=== PATIENT | female | born 1930 | race Two or more races ===

== ENCOUNTER 2016-11-07 17:16 | Inpatient (IN) | payer MEDICARE, OTHER ==
[~2016-11-07] VITALS: Ht 147.3 cm; Wt 53.5 kg
[2016-11-07] MEDS ORDERED: Milk of Magnesia 30ml Ud ORAL PRN (18:15)
[2016-11-07] MEDS ORDERED: UNOBMED (19:56)
[2016-11-07 20:00] VITALS: BP 152/72
[2016-11-07] MEDS: Metoprolol Tartrate 50mg tab ORAL SCH (20:55)
[2016-11-07] MEDS: Donepezil 5mg Tab ORAL SCH (20:55)
[2016-11-07] MEDS ORDERED: ceFAZolin 1gm/50ml Premix 50 ML IV SCH (21:00)
[2016-11-07] MEDS: Hydrocortisone 2.5% Oint 30gm TOPIC SCH (21:20)
[2016-11-08] VITALS: BP 134/70
[2016-11-08 04:00] VITALS: BP 140/83
[2016-11-08 07:31] LABS: CREATININE 0.9 mg/dL (0.5-0.9)
[2016-11-08 08:00] VITALS: BP 142/83
[2016-11-08] MEDS: Metoprolol Tartrate 50mg tab ORAL SCH ×2 (08:46→20:48)
[2016-11-08] MEDS: Vitamin D 1000 IU Tab ORAL SCH (08:46)
[2016-11-08] MEDS: Sennosides 8.6mg ORAL PRN (08:46)
[2016-11-08] MEDS: Aspirin Baby 81mg ORAL SCH (08:46)
[2016-11-08] MEDS: Hydrocortisone 2.5% Oint 30gm TOPIC SCH ×2 (08:51→20:50)
[2016-11-08 12:00] VITALS: BP 15/76
[2016-11-08] MEDS: ceFAZolin sod 1 GM in D5W 55 ML IVP SCH ×2 (12:17→20:30)
[2016-11-08] MEDS ORDERED: NS 275ml ONE (15:35)
[2016-11-08 16:15] VITALS: BP 126/76
[2016-11-08 20:00] VITALS: BP 162/93
[2016-11-08] MEDS: Donepezil 5mg Tab ORAL SCH (20:31)
[2016-11-09] VITALS: BP 143/76
--- NOTE | 2016-11-09 02:15 | History and Physical Report ---
DATE OF ADMISSION: 11/07/2016 CHIEF COMPLAINT: Lower extremity cellulitis and edema. History Of Present Illness: The patient is a pleasant female with a history of hypertensive heart disease, mild dementia, and 00:25 disease. She presented from a staff assistant's office with complaints of lower extremity edema and erythema and pain in the legs. The patient was diagnosed with cellulitis as well as mild CHF exacerbation and is now admitted for further evaluation and care. PAST MEDICAL HISTORY: As above. PAST SURGICAL HISTORY: None. CURRENT MEDICATIONS: Reconciled and reviewed. ALLERGIES: None. FAMILY HISTORY: None. SOCIAL HISTORY: Negative for tobacco, ethanol, or drugs. Review Of Systems: General: No fever or chills. HEENT: No headaches or visual changes. Cardiopulmonary: No chest pain. Positive lower extremity edema. Gastrointestinal: No nausea or vomiting. Genitourinary: No urgency or frequency. Musculoskeletal: Positive lower extremity edema. Neurologic: No evidence of seizures. PHYSICAL EXAMINATION: Vital Signs: Temperature 98 degrees, pulse 57, and blood pressure 140/83. The patient is a well-developed female, in no apparent distress. GENERAL: She is awake and alert. NECK: Supple. No jugular vein distention. HEART: Regular rate and rhythm. LUNGS: Clear. ABDOMEN: Soft, nontender, and nondistended. Extremities: Without clubbing or cyanosis. Legs have 2+ edema. There are multiple excoriations. There is some erythema noted from the knees down. LABORATORY DATA: Labs are pending. ASSESSMENT: 1. This is a pleasant female admitted with complaints of possible lower extremity cellulitis . 2. Possible congestive heart failure exacerbation. 3. Venous insufficiency. 4. Hypertension. PLAN: 1. IV antibiotics. 2. Cardiology consultation for management of the patient's heart failure regimen. 3. DVT and stress ulcer prophylaxes. 4. Keep legs elevated. Reji Ochoa M.D. DR: VAZQUEZ JOB#: [id number] CC:
[2016-11-09 04:00] VITALS: BP 136/85
--- NOTE | 2016-11-09 05:30 | History and Physical Report ---
CARDIOLOGY CONSULTATION 11/07/2016 REFERRING MD: KATELYNN KENNEDY M.D. Reason For CONSULT: Cellulitis of bilateral lower extremities, edema, and possible congestive heart failure. History Of Present Illness: This is an 85-year-old female. She lives at home. She was seen in my office today complaining of worsening rash, itching, and swelling of her lower extremities. There is some involvement of her upper extremities with regards to the rash, but not a significant. The patient has been using her usual creams for psoriasis, but has deteriorated with regard to the symptoms noted above. She has not had shortness of breath or chest pain. Past Medical History: Hypertension, history of diastolic congestive heart failure, osteoporosis, osteoarthritis, degenerative disk disease, permanent pacemaker, conduction system disease, sinus node disease, psoriasis, and vitamin D deficiency. ALLERGIES: None. MEDICATIONS: Prior to admission, reviewed and reconciled. SOCIAL HISTORY: Nonsmoker. No alcohol or substance abuse. FAMILY HISTORY: Noncontributory. Review Of Systems: No fevers or chills. No history of DVT. No seizure or stroke. No change in bowel habits, although she has chronic constipation. No history of kidney disease. No history of flow-limiting coronary disease or exertional chest pain. No history of asthma. Her most recent echocardiogram revealed normal ejection fraction, concentric hypertrophy, and mild degenerative valve disease. She had a permanent pacemaker that was recently interrogated and functioning appropriately. There is no history of diabetes or thyroid impairment. She has had a history of elevated cholesterol, but is not on therapy at this time. OBJECTIVE: Vital signs: Blood pressure 152/72, pulse 61, respirations 18, and afebrile. HEENT: Arcus senilis. Oropharynx clear. NECK: Supple. LUNGS: Clear. Cardiac: Regular. Normal S1 and S2 with a 1/6 early systolic apical murmur. Pacemaker pocket site clean and dry. BREASTS: Without discrete masses. ABDOMEN: Soft and nontender. No ascites. EXTREMITIES: A 1+ dependent edema mostly nonpitting and diffuse. Skin: Erythematous patches with erythema and some scabbing to the lower extremities predominantly. IMPRESSION: 1. Cellulitis. 2. Venous insufficiency with edema. 3. No clinical signs of acute congestive heart failure. 4. Hypertensive heart disease. 5. Permanent pacemaker. 6. History of psoriasis. PLAN: 1. Antimicrobials. 2. Continue topical steroids. 3. Considering Dermatology and Rheumatology evaluation. 4. DVT prophylaxis. 5. Venous duplex scan to assess for DVT. Hernandez Blount M.D. DR: SHARAN JOB#: [id number] CC: SOBEIDA
--- NOTE | 2016-11-09 05:45 | Progress Note ---
DATE: 11/08/2016 INTERNAL MEDICINE CARDIOLOGY PROGRESS NOTE Subjective: The patient has no chest pain or shortness of breath. Her leg swelling is about the same. Her itching is decreased. Her rash still is present. OBJECTIVE: Vital Signs: Blood pressure 142/83, pulse 60, respirations 16, and afebrile. LUNGS: Clear. CARDIAC: Regular. No new murmur. ABDOMEN: Soft. EXTREMITIES: Nonpitting edema. Skin: With lower extremity erythematous patches with some scaling and thickened skin. IMPRESSION: 1. Psoriasis with secondary cellulitis. 2. Venous insufficiency with chronic edema. 3. No signs of acute congestive heart failure. 4. Hypertensive heart disease. 5. Permanent pacemaker. PLAN: 1. Empiric antibiotics. 2. Topical steroids. 3. Await venous duplex scan. 4. Continue current antihypertensives. 5. DVT prophylaxis. Hernandez Blount M.D. DR: Sharlene JOB#: [id number] CC:
[2016-11-09 08:03] VITALS: BP 152/71
[2016-11-09] MEDS: Hydrocortisone 2.5% Oint 30gm TOPIC SCH (08:24)
[2016-11-09] MEDS: Metoprolol Tartrate 50mg tab ORAL SCH (08:24)
[2016-11-09] MEDS: Sennosides 8.6mg ORAL PRN (08:24)
[2016-11-09] MEDS: Vitamin D 1000 IU Tab ORAL SCH (08:25)
[2016-11-09] MEDS: Aspirin Baby 81mg ORAL SCH (08:26)
[2016-11-09 08:52] LABS: BASOPHILS % (AUTO) 1.6 % (0.0-2.0); EOSINOPHILS % (AUTO) 3.8 % (0.0-3.0); LYMPHOCYTES % (AUTO) 47.9 % (20.0-45.0); MEAN CORPUSCULAR HEMOGLOBIN 32.9 PG (27.0-31.0); MEAN CORPUSCULAR HGB CONC 31.6 G/DL (32.0-36.0); MEAN CORPUSCULAR VOLUME 104 FL (80-99); MEAN PLATELET VOLUME 8.1 FL (6.5-10.1); MONOCYTES % (AUTO) 7.8 % (1.0-10.0); NEUTROPHILS % (AUTO) 38.8 % (45.0-75.0); PLATELET COUNT 181 K/UL (150-450); RED BLOOD COUNT 4.01 M/UL (4.20-5.40); RED CELL DISTRIBUTION WIDTH 12.3 % (11.6-14.8); WHITE BLOOD COUNT 3.9 K/UL (4.8-10.8)
[2016-11-09 09:05] LABS: ALANINE AMINOTRANSFERASE 14 U/L (3-33); ALBUMIN/GLOBULIN RATIO 1.5 (1.0-2.7); ANION GAP 10 (5-15); ASPARTATE AMINO TRANSFERASE 25 U/L (5-40); CALCIUM 10.1 mg/dL (8.6-10.2); CARBON DIOXIDE 31 mEQ/L (20-30); CHLORIDE 102 mEQ/L (98-107); HEMOLYSIS 4; MAGNESIUM 1.9 mg/dL (1.7-2.5); POTASSIUM 4.5 mEQ/L (3.4-4.9); SODIUM 143 mEQ/L (135-145); TOTAL PROTEIN 6.8 g/dL (6.6-8.7)
[2016-11-09] MEDS: ceFAZolin sod 1 GM in D5W 55 ML IVP SCH (10:00)
[2016-11-09 12:03] VITALS: BP 127/75
[2016-11-09] MEDS ORDERED: Heparin 5000 units/ml inj SUBQ SCH (21:00)
--- NOTE | 2016-11-10 05:32 | Progress Note ---
DATE: 11/09/2016 CARDIOLOGY PROGRESS NOTE Subjective: The patient has no chest pain and no shortness of breath. She is anxious to go home. She says she feels much better. Her leg swelling has decreased. Her itching has stopped. OBJECTIVE: Vital signs: Blood pressure is 127/75, pulse 60, respirations 21, and afebrile. NECK: Supple. LUNGS: Clear. Cardiac: Regular. Normal S1 and S2 with no third heart sound. There is a soft 1/6 apical murmur. ABDOMEN: Soft. Extremities: Revealed no pitting edema and erythematous patches have decreased significantly with no signs of active infection. IMPRESSION: 1. Hypertensive heart disease with blood pressure being labile at times with overall adequate control on current regimen. 2. Diastolic dysfunction with no signs of acute congestive heart failure presently. 3. Chronic venous insufficiency with lower extremity edema, stable. 4. Cellulitis, improved of lower extremities. 5. Psoriasis, chronic. 6. Permanent pacemaker with stable function. PLAN: 1. Outpatient followup. 2. Oral therapy discussed with the patient. 3. Cardiac followup for routine pacemaker interrogation. Hernandez Blount M.D. DR: Gregor JOB#: [id number] CC:
--- NOTE | 2016-11-10 18:00 | Discharge Summary ---
DATE OF ADMISSION: 11/07/2016 DATE OF DISCHARGE: 11/09/2016 ADMISSION DIAGNOSES: 1. Cellulitis. 2. Possible congestive heart failure exacerbation. 3. History of hypertension. DISCHARGE DIAGNOSES: 1. Cellulitis. 2. Possible congestive heart failure exacerbation. 3. History of hypertension. 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 She was noted to have worsening lower extremity edema with cellulitis. She was admitted. She received intravenous antibiotics, diuretic therapy, and cellulitis improved after just several days. She was stable for discharge. The patient was discharged home in stable condition. Discharge Medications: Please see discharge medication list for discharge medications. DIET: Regular cardiac diet. ACTIVITY: Ad-ga. Followup: The patient will be followed up in one to two weeks in the office. Reji Ochoa M.D. DR: Ena JOB#: [id number] CC:
--- NOTE | 2016-11-11 12:56 | Diagnostic Imaging Report ---
APPROVED REPORT CPT Code: 63008 Present Symptoms Comments: R/O DVT BILATERAL: Imaging reveals a patent deep venous system bilaterally. There is no evidence of thrombus within the femoral, popliteal or tibial segments. The greater saphenous veins are also within normal limits. Doppler indicates normal spontaneous flow within these segments.
== END 2016-11-09 15:16 | disposition home or self-care (01) | DRG 603 ==
LOC: 4E 17:32
DX: L03.116 Cellulitis of left lower limb (principal); I11.0 Hypertensive heart disease with heart failure; I50.32 Chronic diastolic (congestive) heart failure; L03.115 Cellulitis of right lower limb; I87.2 Venous insufficiency (chronic) (peripheral); L40.9 Psoriasis, unspecified; Z95.0 Presence of cardiac pacemaker; M81.0 Age-related osteoporosis without current pathological fracture
CPT/HCPCS: 36415; 80053; 82565; 83735; 83880; 85025; 93970

== ENCOUNTER 2017-12-19 12:48 | Emergency (ER) | payer MEDICARE, OTHER ==
[~2017-12-19] VITALS: Ht 157.5 cm; Wt 54.4 kg
[~2017-12-19 12:48] MED LIST: UNOBMED
[2017-12-19 12:55] VITALS: BP 180/85
[2017-12-19 13:55] VITALS: BP 180/95
[2017-12-19 14:00] LABS: BASOPHILS % (AUTO) 1.3 % (0.0-2.0); EOSINOPHILS % (AUTO) 3.4 % (0.0-3.0); HEMATOCRIT 36.6 % (37.0-47.0); HEMOGLOBIN 11.6 G/DL (12.0-16.0); LYMPHOCYTES % (AUTO) 30.9 % (20.0-45.0); MEAN CORPUSCULAR VOLUME 96 FL (80-99); NEUTROPHILS % (AUTO) 55.4 % (45.0-75.0); PLATELET COUNT 129 K/UL (150-450); RED CELL DISTRIBUTION WIDTH 12.2 % (11.6-14.8); WHITE BLOOD COUNT 4.5 K/UL (4.8-10.8)
--- NOTE | 2017-12-19 14:08 | Emergency Room Report ---
History of Present Illness General Chief Complaint: Abdominal Pain Source: Patient Present Illness HPI 87yo F with a h/o HTN and dementia presents with intermittent vague Abdominal pain, for 2 weeks, no obvious alleviating or exacerbating factors, is not currently having the pain, denies diarrhea or constipation, nausea vomiting, chest pain shortness breath, fevers, urinary complaints. Allergies: Coded Allergies: No Known Allergies (Verified , 04/25/09) Patient History Past Medical History: see triage record Reviewed Nursing Documentation: PMH: Agreed; PSxH: Agreed Nursing Documentation-PMH Past Medical History: No History, Except For Hx Cardiac Problems: Yes Hx Hypertension: Yes Hx Pacemaker: Yes Hx Neurological Problems: Yes Hx Dementia: Yes Review of Systems All Other Systems: negative except mentioned in HPI Physical Exam Vital Signs Date Time Temp Pulse Resp B/P (MAP) Pulse Ox O2 Delivery O2 Flow Rate FiO2 12/19/17 12:53 97.5 74 14 163/117 96 Room Air Sp02 EP Interpretation: reviewed, normal General Appearance: no apparent distress, alert, non-toxic Head: normocephalic Eyes: bilateral eye normal inspection, bilateral eye PERRL, bilateral eye EOMI ENT: normal ENT inspection, hearing grossly normal, normal pharynx, no angioedema, normal voice, moist mucus membranes Neck: normal inspection, full range of motion, supple, supple/symm/no masses Respiratory: chest non-tender, lungs clear, normal breath sounds, chest symmetrical, palpation of chest normal Cardiovascular #1: normal peripheral pulses, regular rate, rhythm, other - Left chest pacemaker site clean dry and intact Cardiovascular #2: 2+ radial (R), 2+ radial (L), 2+ dorsalis pedis (R), 2+ dorsalis pedis (L) Gastrointestinal: normal inspection, non tender, soft, no mass, no guarding, no rebound Rectal: deferred Genitourinary: normal inspection, no CVA tenderness Musculoskeletal: back normal, gait/station normal, normal range of motion, non- tender, no calf tenderness Neurologic: alert, responsive, manipulative therapy specialist III-XII nml as tested, motor strength/tone normal, sensory intact, speech normal Psychiatric: judgement/insight normal, memory normal, mood/affect normal Skin: normal color, no rash, warm/dry, normal turgor Lymphatic: no adenopathy Medical Decision Making Diagnostic Impression: Primary Impression: Abdominal pain ER Course Patient with a soft, nontender abdomen, and actually with no current abdominal pain despite getting no meds here. Pulse exam normal also. Labs and UA without any concerning findings. Pending CT abd/pelvis. CT/MRI/US Diagnostic Results CT/MRI/US Diagnostic Results : Imaging Test Ordered: ct abd/pelvis Last Vital Signs Date Time Temp Pulse Resp B/P (MAP) Pulse Ox O2 Delivery O2 Flow Rate FiO2 12/19/17 12:55 96.8 60 16 180/85 100 Room Air Disposition: HOME, SELF-CARE Condition: Stable Signed Out To: TORY Henrandez M.D Dec 19, 2017 14:07
[2017-12-19] MEDS ORDERED: Sodium Chloride 500ML 500 ML IV ONE (14:10)
[2017-12-19 14:22] LABS: APPEARANCE,URINE CLEAR; BILIRUBIN, URINE NEGATIVE (NEGATIVE); COLOR,URINE PALE YELLOW; GLUCOSE, URINE (UA) NEGATIVE (NEGATIVE); KETONES,URINE NEGATIVE (NEGATIVE); LEUKOCYTE ESTERASE ,URINE NEGATIVE (NEGATIVE); NITRITE,URINE NEGATIVE (NEGATIVE); PH,URINE 8 (4.5-8.0); PROTEIN,URINE NEGATIVE (NEGATIVE); UROBILINOGEN,URINE NORMAL MG/DL (0.0-1.0)
[2017-12-19 14:25] LABS: ANION GAP 6 mmol/L (5-15); BLOOD UREA NITROGEN 20 mg/dL (7-18); CALCIUM 9.2 MG/DL (8.5-10.1); CARBON DIOXIDE 31 MMOL/L (21-32); CHLORIDE 107 MMOL/L (98-107); POTASSIUM 3.9 MMOL/L (3.5-5.1); SODIUM 144 MMOL/L (136-145)
[2017-12-19 14:34] LABS: ALANINE AMINOTRANSFERASE 21 U/L (12-78); ALBUMIN 3.3 G/DL (3.4-5.0); ALBUMIN/GLOBULIN RATIO 0.9 (1.0-2.7); ALKALINE PHOSPHATASE 55 U/L (46-116); ASPARTATE AMINO TRANSFERASE 22 U/L (15-37); BILIRUBIN,TOTAL 0.6 MG/DL (0.2-1.0)
[2017-12-19] MEDS ORDERED: DICYCLOMIN10 MG/5 M1 PO (14:40)
[2017-12-19 14:55] VITALS: BP 181/84
[2017-12-19 15:36] VITALS: BP_SYST 173; BP_SYST 181; BP_DIAS 104; BP_DIAS 84
--- NOTE | 2017-12-19 15:37 | Diagnostic Imaging Report ---
Indication: Abdominal pain Technique: Continuous helical transaxial imaging of the abdomen and pelvis was obtained from the lung bases to the pubic symphysis. No intravenous contrast was administered. Coronal 2-D reformats were also obtained. Automatic Exposure Control was utilized. Total Dose length Product (DLP): 441.[address] Dose Index Volume (CTDIvol): 10.28 mGy Comparison: none Findings: Lung bases show minimal reticulation likely a small focus of atelectasis or scarring at both lung bases. Small hypodensity noted within the left lobe of the liver nonspecific but probably a cyst. Pacemaker is noted. There is a hypodensity 2.7 cm in the right kidney probably cystic. The gallbladder is grossly unremarkable. Some calcification at the origin of the renal arteries and within the wall of the aorta and iliac arteries noted. Evaluation of solid organs is limited on this study done without IV contrast material. No free fluid or free air identified. The bladder is distended. Uterus is either atrophic or has been removed. The appendix is probably seen and as such appears unremarkable. There is narrowing of intervertebral discs and accompanying endplate osteophyte formation. Hypertrophied facet joints also demonstrated.. IMPRESSION: No acute findings appreciated. Mild basilar fibrosis versus atelectasis. Pacemaker Renal hypodensity in the right and left lobe liver hypodensity nonspecific. These may be cysts. Atherosclerotic disease. Other incidental findings as above The CT scanner at [facility] is accredited by the [employer] and the scans are performed using dose optimization techniques as appropriate to a performed exam including Automatic Exposure control.
[2017-12-19 16:10] VITALS: BP 167/71
[2017-12-19] MEDS ORDERED: HYDROCORTISONE28 G2 TP (18:34)
[2017-12-19 18:40] VITALS: BP 132/75
== END 2017-12-19 18:46 | disposition home or self-care (01) ==
LOC: EDBD 12:48 → EMR 13:58 → EDBEDREQ 15:56 → EMR 18:46
DX: R10.9 Unspecified abdominal pain (principal); I10 Essential (primary) hypertension; Z95.0 Presence of cardiac pacemaker; F03.90 Unspecified dementia, unspecified severity, without behavioral disturbance, psychotic disturbance, mood disturbance, and anxiety
CPT/HCPCS: 36415; 74176; 80053; 81003; 83690; 84484; 85025; 96374; 99284; J0360

== ENCOUNTER 2018-03-18 15:49 | Inpatient (IN) | payer MEDICARE, OTHER ==
[~2018-03-18] VITALS: Ht 162.6 cm; Wt 46.8 kg
[~2018-03-18 15:49] MED LIST changes: +DICYCLOMIN10 MG/5 M1 PO; +HYDROCORTISONE28 G2 TP
[2018-03-18] MEDS ORDERED: Milk of Magnesia 30ml Ud ORAL PRN (18:30)
--- NOTE | 2018-03-18 19:16 | NUR ---
HAND-OFF: Report given to Kavitha MALONE.
--- NOTE | 2018-03-18 19:45 | NUR ---
NURSE NOTES: Received patient in bed asleep easily arousable to name, no s/s distress noted. Noted bilateral lower extremity with redness, rashes, and swelling. C/o mild pain at this time. Safety precaution maintained. Instructed to use call light for assistance.
[2018-03-18 20:00] VITALS: BP 146/63
[2018-03-18] MEDS ORDERED: Vancomycin 1gm/D5W 275ml IVPB ONE ×2 (20:00)
--- NOTE | 2018-03-18 20:15 | History and Physical Report ---
DATE OF ADMISSION: 03/18/2018 REASON FOR ADMISSION: Right lower extremity cellulitis, weakness, and dehydration. HISTORY OF PRESENT ILLNESS: This is an 87-year-old female. She lives alone, but has a caregiver frequently assisting. She was seen in my office with worsening lower extremity rash. She also noted weakness, dizziness, and general decline in her ability for self-care. A rash on her leg has worsened. She does have a history of psoriasis, but the usual treatment has not been working and she has stated that her foot care has been quite poor. She states "I am not able to take care of things anymore." The patient had been treated with oral antibiotics several times, but failed to improve. Hospitalization is now initiated. PAST MEDICAL HISTORY: 1. Hypertension. 2. Diastolic dysfunction. 3. Osteoarthritis. 4. Degenerative disk disease. 5. Osteoporosis. 6. Sinus node disease with permanent pacemaker. 7. Vitamin D deficiency. MEDICATIONS: Reviewed and reconciled. ALLERGIES: None. FAMILY HISTORY: Noncontributory. SOCIAL HISTORY: Negative for smoking, alcohol, or substance abuse. REVIEW OF SYSTEMS: She is hard of hearing. She has poor vision. She was seen by an trimmer machine last year and felt not have any reversible ophthalmologic issues. She has no history of asthma. There is no history of blood clotting in the legs. She has a permanent pacemaker interrogated in the last six months and adequately functioning. An echocardiogram in the past has revealed normal ejection fraction and mild degenerative valve disease. There is no history of flow-limiting coronary disease. She occasionally has dysuria and frequency. There is no history of kidney disease. She has chronic constipation with no recent change in bowel habits. She had a colonoscopy about 10 years ago. There is no history of diabetes or thyroid dysfunction. She has been on anti-lipid therapy in the past. She is on vitamin D supplementation. She does have mild dementia, but is able to make decisions about her health care. There is no history of seizure or stroke. PHYSICAL EXAMINATION: VITAL SIGNS: Blood pressure 140/70, pulse 70, respirations 18, and afebrile. HEENT: Arcus senilis. Oropharynx clear. NECK: Supple. LUNGS: Clear. BREASTS: Without masses. Mild tinea. CARDIAC: Regular rhythm and rate. Normal S1, S2 with no murmur. Chest wall with pacemaker pocket clean and dry. ABDOMEN: Soft and nontender. EXTREMITIES: With 1+ dependent edema. Erythema in bilateral lower extremities. Onychomycosis. Some ulcerated sites on the feet and there is a bruise over the left cheek. NEUROLOGIC: Reveals symmetric weakness. Poor sensation. IMPRESSION: 1. Bilateral lower extremity cellulitis. 2. History of psoriasis without definitive diagnosis. 3. Functional decline. 4. Unsteady gait. 5. Bruise, left cheek, possibly due to contusion . 6. Permanent pacemaker. 7. Hypertensive heart disease. 8. Chronic venous insufficiency. 9. Hypovolemia. 10. Dehydration. 11. Poor vision. 12. Onychomycosis. PLAN: 1. Skin care. 2. Skin biopsy. 3. Intravenous antimicrobials. 4. Podiatry evaluation. 5. Physical and occupational therapy. 6. Hydration. 7. Metabolic profile. 8. Further recommendations to follow. Hernandez Blount M.D. DR: GRIFFIN JOB#: [id number] CC:
[2018-03-18] MEDS: Metoprolol Tartrate 50mg tab ORAL SCH (20:16)
[2018-03-18] MEDS: Fluocinonide 15gm Cream TOPIC SCH (20:16)
[2018-03-18 21:23] LABS: BASOPHILS % (AUTO) 1.4 % (0.0-2.0); EOSINOPHILS % (AUTO) 3.4 % (0.0-3.0); HEMATOCRIT 33.9 % (37.0-47.0); HEMOGLOBIN 10.8 G/DL (12.0-16.0); LYMPHOCYTES % (AUTO) 43.4 % (20.0-45.0); MEAN CORPUSCULAR VOLUME 101 FL (80-99); MONOCYTES % (AUTO) 6.9 % (1.0-10.0); NEUTROPHILS % (AUTO) 44.9 % (45.0-75.0); PLATELET COUNT 137 K/UL (150-450); RED BLOOD COUNT 3.35 M/UL (4.20-5.40); RED CELL DISTRIBUTION WIDTH 13.4 % (11.6-14.8)
[2018-03-18 21:48] LABS: ALANINE AMINOTRANSFERASE 19 U/L (12-78); ALBUMIN 3.1 G/DL (3.4-5.0); ALBUMIN/GLOBULIN RATIO 0.9 (1.0-2.7); ALKALINE PHOSPHATASE 68 U/L (46-116); ANION GAP 2 mmol/L (5-15); ASPARTATE AMINO TRANSFERASE 20 U/L (15-37); BILIRUBIN,TOTAL 0.3 MG/DL (0.2-1.0); BLOOD UREA NITROGEN 19 mg/dL (7-18); CALCIUM 9.2 MG/DL (8.5-10.1); CARBON DIOXIDE 33 MMOL/L (21-32); CHLORIDE 107 MMOL/L (98-107); SODIUM 142 MMOL/L (136-145)
[2018-03-18] MEDS: Heparin 5000 units/ml inj SUBQ SCH (21:53)
[2018-03-19] VITALS: BP 155/78
[2018-03-19 02:36] LABS: APPEARANCE,URINE CLEAR; BILIRUBIN, URINE NEGATIVE (NEGATIVE); COLOR,URINE PALE YELLOW; GLUCOSE, URINE (UA) NEGATIVE (NEGATIVE); KETONES,URINE NEGATIVE (NEGATIVE); LEUKOCYTE ESTERASE ,URINE 1+ (NEGATIVE); NITRITE,URINE NEGATIVE (NEGATIVE); PH,URINE 7 (4.5-8.0); PROTEIN,URINE NEGATIVE (NEGATIVE); UROBILINOGEN,URINE NORMAL MG/DL (0.0-1.0)
[2018-03-19 04:00] VITALS: BP 126/77
--- NOTE | 2018-03-19 07:11 | NUR ---
HAND-OFF: Report given to Brenda MALONE.
--- NOTE | 2018-03-19 07:48 | NUR ---
nurse notes received patient resting comfortably in bed, eating breakfast, patient awake, alert, oriented x3 with period of forgetfullness noted, IVF infusing well on left AC, Denies pain or discomfort, on fall precaution observed and maintained, plan of care was discussed verbalized understanding dimitrios banda
[2018-03-19 08:00] VITALS: BP 159/79
[2018-03-19] MEDS: Fluocinonide 15gm Cream TOPIC SCH ×3 (08:25→17:02)
[2018-03-19] MEDS: Vitamin D 1000 IU Tab ORAL SCH (08:26)
[2018-03-19] MEDS: Metoprolol Tartrate 50mg tab ORAL SCH ×2 (08:26→20:47)
[2018-03-19] MEDS: Aspirin EC 81mg tab ORAL SCH (08:26)
[2018-03-19] MEDS: Heparin 5000 units/ml inj SUBQ SCH ×2 (08:27→20:47)
--- NOTE | 2018-03-19 10:28 | NUR ---
REHAB MED PT NOTE CONSULT ISABELLE SLATER PATIENT WILL BENEFIT FROM SKILLED PT DURING STAY FOR RETURN TO [facility]. PLAN OF CARE INITIATED. MESHA PALOMARES PT DPT Addendum: 03/19/18 at 1028 by MESHA PALOMARES PT Amended: Links added.
--- NOTE | 2018-03-19 11:58 | NUR ---
RD ASSESSMENT & RECOMMENDATIONS SEE CARE ACTIVITY FOR COMPLETE ASSESSMENT DAILY ESTIMATED NEEDS: Needs based on cardiac, 46.8kg 25-30 kcals/kg 0826-0606 total kcals 1-1.2 g protein/kg 47-56 g total protein 20-25 mL/kg 936-1170 total fluid mLs NUTRITION DIAGNOSIS: Altered nutrition related lab values r/t clinical status as evidenced by A1C 5.6, BG 109, low Hgb 10.8. CURRENT DIET: Cardiac PO DIET RECOMMENDATIONS: Liberalized Regular diet ADDITIONAL RECOMMENDATIONS: 1) Obtain a calibrated bed scale wt -> if able, standing scale wt preferred 2) Monitor BG, accu-checks w/ niss 3) Add Ensure qdaily; w/ elev BG rec Glucerna 1 tetra prachi daily 4) Snacks BID in b/w meals 5) F/up w/ WC eval for BL LE 6) RN ER eval as need d/t advanced age + functional decline as per
[2018-03-19 12:15] VITALS: BP 140/76
--- NOTE | 2018-03-19 12:59 | Podiatric Progress Note ---
Assessment/Plan Patient Saumya Quintana is a 87 year old female who was admitted on Mar 18, 2018 at 16: 32 with Problems: (1) PVD (peripheral vascular disease) (2) Onychomycosis (3) Edema (4) Pain in toe of left foot (5) Pain in toe of right foot (6) Hammer toe of left foot (7) Hammer toe of right foot (8) HTN (hypertension) Assessment/Plan nails were debrided 1-10 by mechanical means. noted immediate relief and decrease in discomfort. Patient was told to contact our office for future care. Subjective Reason for consult elongated dystrophic nails Allergies: Coded Allergies: No Known Allergies (Verified , 04/25/09) Subjective patient seen by bedside with family present complaining of elongated painful nails. Patient resides in an old home facility and states she does have a foot doctor see her and tries to take care of herself. Objective Exam Last 24 Hour Vital Signs Date Time Temp Pulse Resp B/P (MAP) Pulse Ox O2 Delivery O2 Flow Rate FiO2 03/19/18 12:15 97.8 63 18 140/76 (97) 100 03/19/18 08:47 Room Air 03/19/18 08:26 62 126/77 03/19/18 08:00 98.2 61 18 159/79 (105) 99 03/19/18 04:00 97.5 62 18 126/77 (93) 99 03/19/18 00:00 98.4 61 20 155/78 (103) 99 03/18/18 21:00 Room Air 03/18/18 20:16 61 146/63 03/18/18 20:00 98.1 61 18 146/63 (90) 99 03/18/18 17:37 Room Air Laboratory Tests Test 03/18/18 20:40 03/19/18 02:00 White Blood Count 5.0 K/UL (4.8-10.8) Red Blood Count 3.35 M/UL (4.20-5.40) L Hemoglobin 10.8 G/DL (12.0-16.0) L Hematocrit 33.9 % (37.0-47.0) L Mean Corpuscular Volume 101 FL (80-99) H Mean Corpuscular Hemoglobin 32.2 PG (27.0-31.0) H Mean Corpuscular Hemoglobin Concent 31.8 G/DL (32.0-36.0) L Red Cell Distribution Width 13.4 % (11.6-14.8) Platelet Count 137 K/UL (150-450) L Mean Platelet Volume 7.1 FL (6.5-10.1) Neutrophils (%) (Auto) 44.9 % (45.0-75.0) L Lymphocytes (%) (Auto) 43.4 % (20.0-45.0) Monocytes (%) (Auto) 6.9 % (1.0-10.0) Eosinophils (%) (Auto) 3.4 % (0.0-3.0) H Basophils (%) (Auto) 1.4 % (0.0-2.0) Erythrocyte Sedimentation Rate 18 MM/HR (0-30) Sodium Level 142 MMOL/L (136-145) Potassium Level 4.0 MMOL/L (3.5-5.1) Chloride Level 107 MMOL/L (98-107) Carbon Dioxide Level 33 MMOL/L (21-32) H Anion Gap 2 mmol/L (5-15) L Blood Urea Nitrogen 19 mg/dL (7-18) H Creatinine 1.0 MG/DL (0.55-1.30) Estimat Glomerular Filtration Rate mL/min (>60) Glucose Level 109 MG/DL (74-106) H Hemoglobin A1c 5.6 % (4.3-6.0) Calcium Level 9.2 MG/DL (8.5-10.1) Total Bilirubin 0.3 MG/DL (0.2-1.0) Aspartate Amino Transf (AST/SGOT) 20 U/L (15-37) Alanine Aminotransferase (ALT/SGPT) 19 U/L (12-78) Alkaline Phosphatase 68 U/L (46-116) Total Protein 6.4 G/DL (6.4-8.2) Albumin 3.1 G/DL (3.4-5.0) L Globulin 3.3 g/dL Albumin/Globulin Ratio 0.9 (1.0-2.7) L Vitamin B12 Level 735 PG/ML (193-986) Folate 52.4 NG/ML (8.6-58.9) Thyroid Stimulating Hormone (TSH) 1.628 uiU/mL (0.358-3.740) Urine Color Pale yellow Urine Appearance Clear Urine pH 7 (4.5-8.0) Urine Specific [place] 1.005 (1.005-1.035) Urine Protein Negative (NEGATIVE) Urine Glucose (UA) Negative (NEGATIVE) Urine Ketones Negative (NEGATIVE) Urine Blood Negative (NEGATIVE) Urine Nitrite Negative (NEGATIVE) Urine Bilirubin Negative (NEGATIVE) Urine Urobilinogen Normal MG/DL (0.0-1.0) Urine Leukocyte Esterase 1+ (NEGATIVE) H Urine RBC 0-2 /HPF (0 - 2) Urine WBC 0-2 /HPF (0 - 2) Urine Squamous Epithelial Cells Few /LPF (NONE/OCC) Urine Bacteria Moderate /HPF (NONE) H Musculoskeletal Muscle strength grading: grade 4 Musculoskeletal contracted digits are noted 2-5 b/l at the pipj consistent with hammertoe. Vascular Pulses: 0 dorsalis pedis (R), 0 dorsalis pedis (L), 0 posterior tibial (R), 0 posterior tibial (L) Edema: 2+ (2-4mm) ankle (L), 2+ (2-4mm) ankle (R), 2+ (2-4mm) leg (L), 2+ (2- 4mm) leg (R) Visible vascular abnormality: varicose veins, telangiectasia Temperature: cool Neurological Light touch: sensate bilateral Dermatological Dermatological Narrative nails noted to be elongated, dystrophic, yellow, thick with subungual debris 1- 10, painful with palpation. Hernandez Urias DPM Mar 19, 2018 12:59
[2018-03-19 15:53] VITALS: BP 123/76
--- NOTE | 2018-03-19 16:06 | NUR ---
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 98.1 HR 61 RR 18 B/P 146/63 RA 98% BUN 19 IS: IVF NS @ 75ML/HR VANCO IV HEPARIN SUBC ADMITTED TO MED/SURG MED/SURG STATUS DCP SNF VS HOME
[2018-03-19] MEDS ORDERED: Tubing IV Secondary IV ONE (16:44)
[2018-03-19] MEDS ORDERED: NS 275ml ONE (16:44)
--- NOTE | 2018-03-19 19:03 | NUR ---
HAND-OFF: Report given to Allie MALONE accordingly dimitrios banda.
--- NOTE | 2018-03-19 19:20 | NUR ---
NURSE NOTES: Received patient in bed sleeping arousable to tactile stimuli. No facial grimacing noted. IV line patent fluids running at 75 cc/hr. Bed in lowest position and locked. Safety precaution maintained. Instructed patient to use call light if need help. Will continue to monitor.
[2018-03-19 20:00] VITALS: BP 131/61
[2018-03-19] MEDS: Vancomycin 500mg/D5W 110ml IVPB SCH ×2 (20:05)
--- NOTE | 2018-03-19 22:58 | Consultation ---
History of Present Illness General Date patient seen: Mar 19, 2018 Reason for Consultation: lower extremity rash Present Illness HPI 87 year old female currently admitted for medical care and management has noted worsening rash on bilateral lower extremities for a few weeks now. States causes itching and discomfort. rash red elevated with no drainage. has attempted skin lotion without relief. surgery called to evaluate and assist with skin biopsy for diagnosis. patient seen, chart reviewed, patient examined. Allergies: Coded Allergies: No Known Allergies (Verified , 04/25/09) Medication History Scheduled Hydrocortisone Acetate 1% Onit (Hydrocortisone 1% Oint), 28 GM TP BID Scheduled PRN Dicyclomine Hcl (Dicyclomine Hcl), 10 MG PO BID PRN for Abdominal cramps Miscellaneous Medications Unable to Obtain Medications (Unable To Obtain Meds), (Reported) Patient History History Provided By: Patient, Medical Record, PMD Healthcare decision maker Resuscitation status Advanced Directive on File Past Medical/Surgical History Past Medical/Surgical History: (1) Psoriasis (2) Cellulitis (3) Onychomycosis (4) Edema (5) PVD (peripheral vascular disease) (6) HTN (hypertension) (7) Pain in toe of left foot (8) Pain in toe of right foot (9) Hammer toe of left foot (10) Hammer toe of right foot Review of Systems All Other Systems: negative except mentioned in HPI Physical Exam General Appearance: no apparent distress, alert Lines, tubes and drains: peripheral HEENT: mucous membranes moist Neck: normal inspection Respiratory/Chest: no respiratory distress Cardiovascular/Chest: normal rate Abdomen: soft, no organomegaly, no mass Extremities: no calf tenderness, normal capillary refill, inflammation, other Skin Exam: rash Neurologic: alert Last 24 Hour Vital Signs Date Time Temp Pulse Resp B/P (MAP) Pulse Ox O2 Delivery O2 Flow Rate FiO2 03/19/18 21:00 Room Air 03/19/18 20:47 62 131/61 03/19/18 20:00 98.3 62 18 131/61 (84) 99 03/19/18 15:53 98.1 72 20 123/76 (92) 100 03/19/18 12:15 97.8 63 18 140/76 (97) 100 03/19/18 08:47 Room Air 03/19/18 08:26 62 126/77 2/7/19 08:00 98.2 61 18 159/79 (105) 99 03/19/18 04:00 97.5 62 18 126/77 (93) 99 03/19/18 00:00 98.4 61 20 155/78 (103) 99 Intake and Output 03/18/18 03/19/18 18:59 06:59 Intake Total 120 ml 1163.000 ml Balance 120 ml 1163.000 ml Intake Oral 120 ml 360 ml IV Total 803.000 ml # Voids 3 # Bowel Movements 1 Laboratory Tests Test 03/19/18 02:00 Urine Color Pale yellow Urine Appearance Clear Urine pH 7 (4.5-8.0) Urine Specific [place] 1.005 (1.005-1.035) Urine Protein Negative (NEGATIVE) Urine Glucose (UA) Negative (NEGATIVE) Urine Ketones Negative (NEGATIVE) Urine Blood Negative (NEGATIVE) Urine Nitrite Negative (NEGATIVE) Urine Bilirubin Negative (NEGATIVE) Urine Urobilinogen Normal MG/DL (0.0-1.0) Urine Leukocyte Esterase 1+ (NEGATIVE) H Urine RBC 0-2 /HPF (0 - 2) Urine WBC 0-2 /HPF (0 - 2) Urine Squamous Epithelial Cells Few /LPF (NONE/OCC) Urine Bacteria Moderate /HPF (NONE) H Height (Feet): 5 Height (Inches): 4.00 Weight (Pounds): 103 Medications Current Medications Medications (Trade) Dose Ordered Sig/Lucien Route PRN Reason Start Time Stop Time Status Last Admin Dose Admin Acetaminophen (Tylenol) 650 mg Q6H PRN ORAL Mild Pain/Temp > 100.5 03/18/18 18:30 04/17/18 18:29 Aspirin (Ecotrin) 81 mg DAILY ORAL 03/19/18 09:00 04/18/18 08:59 03/19/18 08:26 Fluocinonide (Lidex) 1 applic THREE TIMES A DAY TOPIC 03/18/18 20:00 04/17/18 19:59 03/19/18 17:02 Heparin Sodium (Porcine) (Heparin 5000 units/ml) 5,000 units EVERY 12 HOURS SUBQ 03/18/18 22:00 04/17/18 21:59 Magnesium Hydroxide (Mom) 30 ml DAILYPRN PRN ORAL Constipation 03/18/18 18:30 04/17/18 18:29 Metoprolol Tartrate (Lopressor) 50 mg Q12HR ORAL 03/18/18 21:00 04/17/18 20:59 03/19/18 20:47 Pravastatin Sodium (Pravachol) 20 mg BEDTIME ORAL 03/18/18 21:00 04/17/18 20:59 03/19/18 20:47 Sodium Chloride 1,000 ml @ 75 mls/hr [id number] IV 03/18/18 22:30 04/17/18 22:29 03/19/18 11:48 Vancomycin HCl (Vanco rx to dose) 1 ea DAILY PRN MISC Per rx protocol 03/18/18 18:00 04/17/18 17:59 Vancomycin HCl 500 mg/Dextrose 110 ml @ 110 mls/hr Q24H IVPB 03/19/18 20:00 03/24/18 19:59 03/19/18 20:05 Vitamin D (Vitamin D) 1,000 intlu DAILY ORAL 03/19/18 09:00 04/18/18 08:59 03/19/18 08:26 Assessment/Plan Problem List: (1) Cellulitis Assessment & Plan: bilateral lower extremity rash present for some time not without improvement red patchy lesions without drainage -will do full thickness skin biopsy tomorrow for pathological evaluation -can do at bedside -thank you. will follow with recs ICD Codes: L03.90 - Cellulitis, unspecified SNOMED: [id number] Qualifiers: Qualified Codes: L03.119 - Cellulitis of unspecified part of limb (2) Psoriasis ICD Codes: L40.9 - Psoriasis, unspecified SNOMED: [id number] Earle Esteves Mar 19, 2018 22:58
--- NOTE | 2018-03-19 23:45 | Progress Note ---
DATE: 03/19/2018 CARDIOLOGY AND INTERNAL MEDICINE PROGRESS NOTE SUBJECTIVE: The patient had her nails debrided today and feels better. She still has some itching of her leg. Swelling has decreased slightly. OBJECTIVE: VITAL SIGNS: Blood pressure 131/61, pulse 62, and respirations 18. LUNGS: Clear. CARDIAC: Regular. ABDOMEN: Soft. EXTREMITIES: Trace edema. Erythematous patches diffusely. Urinalysis, no active sediment. IMPRESSION: 1. Cellulitis. 2. Possible history of psoriasis. 3. Onychomycosis. 4. Hypovolemia. 5. Dehydration. 6. Pacemaker. 7. Hypertensive heart disease. PLAN: 1. Continue antimicrobials. 2. Skin care. 3. Taper intravenous fluids. 4. Skin biopsy. 5. Physical and occupational therapy assessments. Hernandez Blount M.D. DR: HELEN JOB#: [id number] CC:
[2018-03-20] VITALS: BP 125/69
[2018-03-20 04:00] VITALS: BP 130/71
--- NOTE | 2018-03-20 07:28 | NUR ---
NURSE NOTES: Patient received in stable condition, eating breakfast in bed. Breathing unlabored on room air. Denies pain at this time. IV site intact right arm. Call light within reach, will continue to monitor.
--- NOTE | 2018-03-20 07:33 | NUR ---
HAND-OFF: Report given to KIRA Bermudez.
[2018-03-20 08:00] VITALS: BP 130/61
[2018-03-20] MEDS: Aspirin EC 81mg tab ORAL SCH (08:13)
[2018-03-20] MEDS: Metoprolol Tartrate 50mg tab ORAL SCH ×2 (08:13→20:40)
[2018-03-20] MEDS: Fluocinonide 15gm Cream TOPIC SCH ×3 (08:13→18:00)
[2018-03-20] MEDS: Vitamin D 1000 IU Tab ORAL SCH (08:13)
[2018-03-20] MEDS: Heparin 5000 units/ml inj SUBQ SCH ×2 (08:14→20:43)
--- NOTE | 2018-03-20 09:59 | NUR ---
Social Service Note Referral faxed to [facility] [phone] (p) [phone] (f) for impending dc plan this weekend. Addendum: 03/20/18 at 1014 by JOELLE MERCHANT NIYAH spoke with patient's brother Christian Tian [phone] who is in agreement with dc plan. Brother to be notified the day of discharge. Addendum: 03/20/18 at 1231 by JOELLE MERCHANT Patient accepted for placement per Brianna at [facility] for 03/21/18 skilled room .
[2018-03-20 12:00] VITALS: BP 129/63
[2018-03-20] MEDS ORDERED: Lidocaine 1% 10mg/ml/Epi 0.005mg/ml 30ml vial INJ SCH (12:00)
--- NOTE | 2018-03-20 12:19 | Surgery Progress Note ---
Surgery Progress Note Subjective Additional Comments no acute events. doing well. comfortable. Objective Last 24 Hour Vital Signs Date Time Temp Pulse Resp B/P (MAP) Pulse Ox O2 Delivery O2 Flow Rate FiO2 03/20/18 08:55 Room Air 03/20/18 08:13 61 130/71 03/20/18 08:00 98.0 61 18 130/61 (84) 97 03/20/18 04:00 97.9 61 18 130/71 (90) 100 03/20/18 00:00 98.0 59 18 125/69 (87) 100 03/19/18 21:00 Room Air 03/19/18 20:47 62 131/61 03/19/18 20:00 98.3 62 18 131/61 (84) 99 03/19/18 15:53 98.1 72 20 123/76 (92) 100 I&O Intake and Output 03/19/18 03/20/18 19:00 07:00 Intake Total 1500 ml 550 ml Balance 1500 ml 550 ml Intake Oral 600 ml 400 ml IV Total 900 ml 150 ml # Voids 4 4 # Bowel Movements 1 Cardiovascular: RSR Respiratory: clear Abdomen: soft, non-distended Extremities: other - rash Plan Problems: (1) Cellulitis Assessment & Plan: bilateral lower extremity rash present for some time not without improvement red patchy lesions without drainage discussed procedure at bedside today consent obtained from patient for skin biopsy procedure: right leg mid shaft lateral area of patchy rash noted. site cleaned, prepped and draped in standard surgical fashion. 1%lido with epi infiltrated. small skin punch biopsy taken full thickness. skin reapproximated with since 3-0 monocryl. dressings applied. patient tolerated well specimen sent to path f/u path -thank you. will follow with recs (2) Psoriasis Earle Esteves Mar 20, 2018 12:19
[2018-03-20 16:00] VITALS: BP 129/67
--- NOTE | 2018-03-20 19:27 | NUR ---
HAND-OFF: Report given to Marguerite ENCISO.
--- NOTE | 2018-03-20 19:30 | NUR ---
NURSE NOTES: RECEIVED PATIENT LYING IN BED, AWAKE, ALERT/ORIENTED X2, REALITY ORIENTATION PROVIDED DURING ASSESSMENT, CAREGIVER AT BEDSIDE. DENIES PAIN, NO SIGNS AND SYMPTOMS OF ACUTE CARDIO RESPIRATORY DISTRESS/SHORTNESS OF BREATH, NOTED WITH TRACE EDEMA. SWELLING TO BILATERAL LOWER EXTREMITIES SUBSIDING WELL, RED PATCHY LESIONS NOTED TO EXTREMITIES, NO BLEEDING/DRAINAGE NOTED. NO COMPLAINT OF GI DISTRESS. SIDE RAILS UP X3/BED IN LOWEST POSITION FOR SAFETY. CALL LIGHT WITHIN REACH. NAD. BED ALARM ACTIVATED FOR SAFETY.
[2018-03-20 20:00] VITALS: BP 157/77
[2018-03-20] MEDS: Vancomycin 500mg/D5W 110ml IVPB SCH ×2 (20:00)
--- NOTE | 2018-03-20 22:00 | Progress Note ---
DATE: 03/20/2018 INTERNAL MEDICINE PROGRESS NOTE: SUBJECTIVE: The patient has less itching and leg pain. She remains on antimicrobials. OBJECTIVE: VITAL SIGNS: Blood pressure 130/71, she is afebrile, heart rate 60, respiratory rate 18. Skin biopsy was completed earlier today by Dr. Esteves. Results pending. LUNGS: Clear. CARDIAC: Regular. Normal S1, S2. A 1/6 systolic apical murmur. ABDOMEN: Soft. EXTREMITIES: Trace edema. IMPRESSION: 1. Lower extremity cellulitis, improved. 2. History of psoriasis without definitive diagnosis now status post skin biopsy. 3. Hypertensive heart disease. 4. Chronic venous insufficiency. 5. Permanent pacemaker. 6. Mild protein-calorie malnutrition. 7. Functional decline. 8. Unsteady gait. 9. Hypovolemia and dehydration, corrected. PLAN: 1. Discontinue IV fluids. 2. Continue mobilization efforts. 3. Follow up biopsy results. 4. Rehabilitation in progress. Hernandez Blount M.D. DR: JANES JOB#: [id number] CC:
[2018-03-21] VITALS: BP 156/81
[2018-03-21 04:00] VITALS: BP 159/84
--- NOTE | 2018-03-21 06:25 | NUR ---
NURSE NOTES: RESTED WELL, NO SIGNIFICANT CHANGE OF CONDITION NOTED THROUGHOUT THE NIGHT. SAFETY MAINTAINED. NAD.
--- NOTE | 2018-03-21 07:30 | NUR ---
NURSE NOTES: Received pt from KIRA GOODE. Pt is orient x3. No SOB or acute respiratory distress noted. pt is eating breakfast by her self. all needs attended, bed is locked and is in the lowest position. call light within easy reach. will continue to monitor.
--- NOTE | 2018-03-21 07:30 | NUR ---
HAND-OFF: Report given to KIRA UNDERWOOD.
[2018-03-21 08:00] VITALS: BP 142/70
[2018-03-21] MEDS: Vitamin D 1000 IU Tab ORAL SCH (08:38)
[2018-03-21] MEDS: Metoprolol Tartrate 50mg tab ORAL SCH (08:39)
[2018-03-21] MEDS: Aspirin EC 81mg tab ORAL SCH (08:43)
[2018-03-21] MEDS: Fluocinonide 15gm Cream TOPIC SCH ×2 (08:44→12:14)
[2018-03-21] MEDS: Heparin 5000 units/ml inj SUBQ SCH (08:45)
[2018-03-21] MEDS ORDERED: ACETAMINOP160 MG/54 ORAL (10:18)
[2018-03-21] MEDS ORDERED: ASPIRIN EC325 MG ORAL (10:19)
[2018-03-21] MEDS ORDERED: AMOXICILLI250 MG/5 M ORAL (10:19)
[2018-03-21] MEDS ORDERED: VITAMIN D1000 UNI1 ORAL (10:20)
[2018-03-21] MEDS ORDERED: FLUOCINONIDE-E15 G1 TP (10:21)
[2018-03-21] MEDS ORDERED: HEPARIN SO5000 UNIT2 SUBQ (10:22)
[2018-03-21] MEDS ORDERED: MILK OF MA400 MG/51 ORAL (10:28)
[2018-03-21] MEDS ORDERED: MELOXICAM7.5 MG PO (10:29)
[2018-03-21] MEDS ORDERED: METOPROLOL TART50 M1 ORAL (10:29)
[2018-03-21] MEDS ORDERED: PRAVASTATIN SOD20 M1 ORAL (10:31)
[2018-03-21 12:01] VITALS: BP 126/66
--- NOTE | 2018-03-21 12:45 | Surgery Progress Note ---
Surgery Progress Note Subjective Additional Comments no acute events. comfortable. brother at bedside. pain minimal Objective Last 24 Hour Vital Signs Date Time Temp Pulse Resp B/P (MAP) Pulse Ox O2 Delivery O2 Flow Rate FiO2 03/21/18 12:01 98.4 60 20 126/66 (86) 97 03/21/18 09:00 Room Air 03/21/18 08:39 61 142/70 03/21/18 08:00 97.7 61 20 142/70 (94) 97 03/21/18 04:00 97.6 19 159/84 (109) 100 03/21/18 00:00 97.5 63 19 156/81 (106) 96 03/20/18 21:00 Room Air 03/20/18 20:40 64 157/89 03/20/18 20:00 97.8 61 19 157/77 (103) 97 03/20/18 16:00 98.4 61 18 129/67 (87) 96 I&O Intake and Output 03/20/18 03/21/18 19:00 07:00 Intake Total 960 ml 820 ml Balance 960 ml 820 ml Intake Oral 960 ml 610 ml IV Total 210 ml # Voids 2 3 Dressing: dry Wound: clean, dry Drains: none Cardiovascular: RSR Respiratory: clear Abdomen: soft, flat, present bowel sounds, non-distended Extremities: no edema, no tenderness, no cyanosis, other - rash Plan Problems: (1) Cellulitis Assessment & Plan: bilateral lower extremity rash present for some time not without improvement red patchy lesions without drainage s/p skin biopsy site c/d/i f/u path -thank you. will follow with recs (2) Psoriasis Earle Esteves Mar 21, 2018 12:45
--- NOTE | 2018-03-21 14:24 | NUR ---
NURSE NOTES: pt has order to discharge, all discharge assessments and instructions done. pt is stable, V/S stable. given report to KIRA OSEI in SNF. Pt's brother is aware about discharging and the place and has SNF phone number. pt has cellulitis on her legs and because of itching she has skin tear on the R leg, cleansed and covered. all belongings are with pt, no iv access. pt left hospital with accompany of ambulance personnel.
--- NOTE | 2018-03-23 10:03 | Discharge Summary ---
Discharge Summary Discharge Summary _ DATE OF ADMISSION: 03/18/2018 DATE OF DISCHARGE: [] 03/21/2008 DISCHARGED BY: Dr. Blount REASON FOR ADMISSION: 87 years old female with past medical history of hypertension, diastolic dysfunction, osteoporosis, osteoarthritis, degenerative disc disease, sinus node disease with permanent pacemaker, vitamin D deficiency, was seen in the office for lower extremity rash. Patient also had psoriasis, but was never officially diagnosed with it. Patient was noted weakness , dizziness and generalized decline in her ability for self-care. The patient failed outpatient medical therapy with oral antibiotics for cellulitis. Hospitalization was initiated CONSULTANTS: surgery Dr. Esteves acid regenerator Dr. Urias [facility] COURSE: Patient was admitted to medical surgical floor , started on gentle IV hydration and empiric antibiotics. Podiatry and general surgery consults were requested. Blood cultures were negative. Urine culture revealed mixed gram-positive Patient will need to complete antibiotics at the facility to finish the course of treatment. Surgeon seen and evaluated patient. Patient demonstrated red patchy lesions on the lower extremities. Patient undergone full thickness small skin punch biopsy. At the time of this dictation pathology results still pending. Safety Compliance Specialist seen and evaluated patient for onychomycosis and hammertoe bilateral foot with pain. Okay okay morphine to relieve. Injury had her sleep but nothing ready to start this will resolve everything per the record Patient undergone mechanical debridement bilateral foot toes 1 through 10. Patient was working with physical therapist. Fall precaution maintained. DVT prophylaxis provided. Antiplatelet therapy and statin were continued. Lipid panel was stable. Blood pressure was managed with beta-misty and remained stable. Vitamin D replacement was continued. Topical wound care with Lidex continued. Dietary recommendation regarding protein supplements implemented in plan of care. Patient require placement to [facility] facility due to inability to care for herself. Patient was stable for discharge to [facility] facility for continuation of care. Follow up with skin biopsy results. FINAL DIAGNOSES: Cellulitis lower extremity Psoriasis, status post biopsy Hypertensive heart disease Chronic venous insufficiency Permanent pacemaker Protein calorie malnutrition Functional decline Dehydration with hypovolemia Onychomycosis Hammertoe of left foot with pain Hammertoe right foot with pain Status post mechanical debridement bilateral foot toes 1-10 DISCHARGE MEDICATIONS: See Medication Reconciliation list. DISCHARGE INSTRUCTIONS: Patient was discharged to the [facility] facility. Follow up with medical doctor at the facility. I have been assigned to dictate discharge summary for this account. I was not involved in the patient's management.red patchy lesions without drainage Katiana Goldsmith NP Mar 23, 2018 10:03
== END 2018-03-21 14:38 | DRG 603 ==
LOC: 4E 16:32
PROC: 0HBLXZX Excision of Left Lower Leg Skin, External Approach, Diagnostic (ICD-10-PCS; principal; 2018-03-18)
PROC: 0HBRXZZ Excision of Toe Nail, External Approach (ICD-10-PCS; 2018-03-19)
DX: L03.116 Cellulitis of left lower limb (principal); E46 Unspecified protein-calorie malnutrition; Z68.1 Body mass index [BMI] 19.9 or less, adult; L03.115 Cellulitis of right lower limb; Z95.0 Presence of cardiac pacemaker; E86.0 Dehydration; L40.9 Psoriasis, unspecified; E86.1 Hypovolemia; M81.0 Age-related osteoporosis without current pathological fracture; B35.1 Tinea unguium; M20.42 Other hammer toe(s) (acquired), left foot; M20.41 Other hammer toe(s) (acquired), right foot; R26.81 Unsteadiness on feet; I87.2 Venous insufficiency (chronic) (peripheral); I11.9 Hypertensive heart disease without heart failure
CPT/HCPCS: 36415; 80053; 81003; 82607; 82746; 83036; 84443; 85025; 85651; 87040; 87086; 93970